=== PATIENT | female | born 1990 | race Caucasian/White ===

== ENCOUNTER 2021-01-18 06:11 | Emergency (ER) | payer MEDICAID ==
[~2021-01-18] VITALS: Ht 154.9 cm; Wt 86.3 kg
--- NOTE | 2021-01-18 07:18 | NUR ---
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
[2021-01-18] MEDS ORDERED: ACETAMINOPHEN 500 MG TABLET PO ONE (07:30)
[2021-01-18] MEDS ORDERED: ONDANSETRON 2MG/ML, 2ML IVPush ONE (07:30)
[2021-01-18] MEDS ORDERED: SODIUM CHLORIDE FLUSH 10ML SYR IVF ONE (07:30)
[2021-01-18] MEDS ORDERED: SODIUM CHLORIDE 0.9% 1,000ML IVBOLUS ONE (07:30)
--- NOTE | 2021-01-18 07:53 | NUR ---
PT STATES SHE RECEIVED 2ND MODERNA COVID VACC YESTERDAY. C/O LT UPPER ARM PAIN; STARTED AT 1800 YESTERDAY; PAIN W/ MOVEMENT OF LUE. TOOK "HEADACHE RELIEF" ([employer]) YESTERDAY W/ MINIMAL RELIEF. PT IS RT HANDED.
[2021-01-18 08:01] LABS: BASOPHILS % (AUTO) 1 % (0-1); EOSINOPHILS % (AUTO) 0 % (1-7); LYMPHOCYTES % (AUTO) 7 % (22-44); MEAN CORPUSCULAR HEMOGLOBIN 29.6 pg (27.0-34.8); MEAN CORPUSCULAR HGB CONC 35.1 g/dL (32.4-35.8); MEAN PLATELET VOLUME 8.1 fL (7.4-10.4); MONOCYTES % (AUTO) 7 % (2-9); NEUTROPHILS % (AUTO) 86 % (42-75); PLATELET COUNT 192 x10^3/uL (130-400); RED BLOOD COUNT 5.25 x10^6/uL (3.82-5.3)
[2021-01-18 08:12] LABS: ALANINE AMINOTRANSFERASE 21 U/L (12-78); ALBUMIN 3.6 g/dL (3.4-5.0); ANION GAP 6 mmol/L (5-15); CALCIUM 8.4 mg/dL (8.5-10.1); CHLORIDE 109 mmol/L (98-107); CREATININE 0.73 mg/dL (0.55-1.02)
[2021-01-18 08:17] LABS: ALKALINE PHOSPHATASE 100 U/L (45-117); BILIRUBIN,TOTAL 0.4 mg/dL (0.2-1.0); TOTAL PROTEIN 7.2 g/dL (6.4-8.2)
[2021-01-18] MEDS ORDERED: ACETAMINOPHEN 500 MG TABLET ONE (08:31)
[2021-01-18] MEDS ORDERED: ONDANSETRON 2MG/ML, 2ML ONE (08:31)
[2021-01-18 09:27] VITALS: BP 99/68
--- NOTE | 2021-01-18 09:29 | NUR ---
TASK RN: Patient/Caregiver given discharge instructions and they have confirmed that they understand the instructions. Patient ambulatory with steady gait. NAD, all questions answered appropriately, denies additional needs at this time. No personal belongings left in room after discharge.
== END 2021-01-18 09:29 | disposition home or self-care (01) ==
LOC: ED 08:51
DX: R50.9 Fever, unspecified (principal); M79.10 Myalgia, unspecified site; R11.2 Nausea with vomiting, unspecified
CPT/HCPCS: 36415; 80053; 84703; 85025; 96372; 99283; J2405

== ENCOUNTER 2021-01-21 20:12 | Emergency (ER) | payer MEDICAID ==
[~2021-01-21] VITALS: Ht 154.9 cm; Wt 85.0 kg
[2021-01-21] MEDS ORDERED: PROMETHAZINE 25 MG/ML, 1ML ONE (22:22)
[2021-01-21 22:29] VITALS: BP 135/71
[2021-01-21] MEDS ORDERED: PROMETHAZINE 25 MG/ML, 1ML IM ONE (22:30)
== END 2021-01-21 22:31 | disposition home or self-care (01) ==
LOC: ED 21:38
DX: J02.9 Acute pharyngitis, unspecified (principal); T50.B95A Adverse effect of other viral vaccines, initial encounter; Z76.0 Encounter for issue of repeat prescription; R11.2 Nausea with vomiting, unspecified; Y92.89 Other specified places as the place of occurrence of the external cause
CPT/HCPCS: 96372; 99283; J2550

== ENCOUNTER 2021-02-09 20:59 | Emergency (ER) | payer MEDICAID ==
[~2021-02-09] VITALS: Ht 154.9 cm; Wt 85.8 kg
[2021-02-09] MEDS ORDERED: SODIUM CHLORIDE FLUSH 10ML SYR IVF ONE (22:30)
[2021-02-09] MEDS ORDERED: SODIUM CHLORIDE 0.9% 1,000ML IVBOLUS ONE (22:30)
[2021-02-09 23:09] LABS: BASOPHILS % (AUTO) 1 % (0-1); EOSINOPHILS % (AUTO) 0 % (1-7); LYMPHOCYTES % (AUTO) 20 % (22-44); MEAN CORPUSCULAR HEMOGLOBIN 29.1 pg (27.0-34.8); MEAN CORPUSCULAR HGB CONC 34.2 g/dL (32.4-35.8); MEAN PLATELET VOLUME 7.8 fL (7.4-10.4); MONOCYTES % (AUTO) 5 % (2-9); NEUTROPHILS % (AUTO) 74 % (42-75); PLATELET COUNT 188 x10^3/uL (130-400); RED CELL DISTRIBUTION WIDTH 13.4 % (9.6-15.2)
--- NOTE | 2021-02-09 23:20 | NUR ---
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
[2021-02-09 23:23] LABS: ALANINE AMINOTRANSFERASE 25 U/L (12-78); ALBUMIN 3.8 g/dL (3.4-5.0); ANION GAP 3 mmol/L (5-15); CALCIUM 8.6 mg/dL (8.5-10.1); CHLORIDE 108 mmol/L (98-107); CREATININE 0.77 mg/dL (0.55-1.02)
--- NOTE | 2021-02-09 23:26 | NUR ---
TASK RN HELPING TO GET PIV INSERTED
[2021-02-09 23:27] LABS: ALKALINE PHOSPHATASE 110 U/L (45-117); BILIRUBIN,TOTAL 0.4 mg/dL (0.2-1.0); TOTAL PROTEIN 7.7 g/dL (6.4-8.2)
--- NOTE | 2021-02-09 23:38 | NUR ---
ASSUMED CARE OF PT. SHE IS HERE C/O MENSTRUAL CRAMPS THAT IS GETTING WORSE. STATES SHE IS ON HER MENSTRUAL PERIOD FOR ALMOST A MONTH NOW. + N/V X4 DAYS R/T CRAMPS MED STUDENT BEDSIDE
[2021-02-10] MEDS ORDERED: ONDANSETRON 2MG/ML, 2ML IVPush ONE
[2021-02-10] MEDS ORDERED: SODIUM CHLORIDE 0.9% 1,000ML IVBOLUS ONE
[2021-02-10] MEDS ORDERED: ONDANSETRON 2MG/ML, 2ML ONE (00:01)
--- NOTE | 2021-02-10 00:06 | NUR ---
PT SITTING ON [facility] ON PHONE, [address]. PT MEDICATED PER OCT. CALL LIGHT W/IN REACH.
--- NOTE | 2021-02-10 00:37 | NUR ---
WENT TO PERFORM STRAIGHT CATH TO COLLECT UA, PT REPORTED VAGINAL US WAS PAINFUL FOR HER AND WOULD PREFER TO NOT HAVE STRAIGHT CATH. STATED CLEAN CATCH WOULD BE ACCEPTABLE. PT DENIES NEED TO VOID AT THIS TIME. [address]. CALL LIGHT W/IN REACH
[2021-02-10] MEDS ORDERED: METOCLOPRAMIDE 10MG TABLET ONE (01:14)
--- NOTE | 2021-02-10 01:16 | NUR ---
PT MEDICATED PER OCT. PT PROVIDED SUPPLIES FOR URINE SAMPLE AND GIVEN INSTRUCTIONS ON CLEAN CATCH. SHE WAS UP TO THE BATHROOM AND BACK W/O INCIDENT, STEADY GAIT. PT ABLE TO PROVIDE URINE SAMPLE. VSS, CALL LIGHT W/IN REACH.
[2021-02-10] MEDS ORDERED: METOCLOPRAMIDE 10MG TABLET PO ONE (01:30)
[2021-02-10 01:39] LABS: MICROSCOPIC AUTO
[2021-02-10 02:15] VITALS: BP 128/66
--- NOTE | 2021-02-10 02:35 | NUR ---
Patient given discharge instructions and they have confirmed that they understand the instructions. Patient ambulatory with steady gait.
== END 2021-02-10 02:36 | disposition home or self-care (01) ==
LOC: ED 21:29
DX: O26.891 Other specified pregnancy related conditions, first trimester (principal); O20.9 Hemorrhage in early pregnancy, unspecified; R10.30 Lower abdominal pain, unspecified; Z32.01 Encounter for pregnancy test, result positive; O21.8 Other vomiting complicating pregnancy; Z3A.01 Less than 8 weeks gestation of pregnancy
CPT/HCPCS: 36415; 76830; 80053; 81001; 84702; 84703; 85025; 86901; 87086; 96361; 96374; 99285; J2405; J7030; Q0181

== ENCOUNTER 2021-02-11 19:09 | Emergency (ER) | payer MEDICAID ==
[~2021-02-11] VITALS: Ht 154.9 cm; Wt 85.3 kg
--- NOTE | 2021-02-11 22:11 | NUR ---
PT REPORTS [employer]ONS/ HR
--- NOTE | 2021-02-11 22:12 | NUR ---
DR RANGEL AT BEDSIDE FOR EVAL AND POC
[2021-02-11 22:15] LABS: BASOPHILS % (AUTO) 1 % (0-1); EOSINOPHILS % (AUTO) 1 % (1-7); LYMPHOCYTES % (AUTO) 20 % (22-44); MEAN CORPUSCULAR HEMOGLOBIN 29.7 pg (27.0-34.8); MEAN CORPUSCULAR HGB CONC 34.6 g/dL (32.4-35.8); MEAN PLATELET VOLUME 7.7 fL (7.4-10.4); MONOCYTES % (AUTO) 6 % (2-9); NEUTROPHILS % (AUTO) 73 % (42-75); PLATELET COUNT 178 x10^3/uL (130-400); RED BLOOD COUNT 5.08 x10^6/uL (3.82-5.3); RED CELL DISTRIBUTION WIDTH 13.6 % (9.6-15.2)
[2021-02-11] MEDS ORDERED: ONDANSETRON 4 MG TABLET PO ONE (22:30)
[2021-02-11] MEDS ORDERED: ONDANSETRON ODT 4 MG PO ONE (22:30)
[2021-02-11] MEDS ORDERED: ONDANSETRON ODT 4 MG ONE (22:50)
[2021-02-11 22:58] VITALS: BP 115/67
--- NOTE | 2021-02-11 22:58 | NUR ---
PT MEDICATED PER OCT 08 RIGHTS VERIFIED
[2021-02-11 23:17] LABS: ALBUMIN 3.8 g/dL (3.4-5.0); CALCIUM 8.7 mg/dL (8.5-10.1); CREATININE 0.63 mg/dL (0.55-1.02)
[2021-02-11 23:24] LABS: ANION GAP 6 mmol/L (5-15); CHLORIDE 106 mmol/L (98-107)
--- NOTE | 2021-02-12 00:04 | NUR ---
Patient/Caregiver given discharge instructions and they have confirmed that they understand the instructions. Patient ambulatory with steady gait. NAD, all questions answered appropriately, denies additional needs at this time. No personal belongings left in room after discharge.
== END 2021-02-12 00:05 | disposition home or self-care (01) ==
LOC: ED 22:43
DX: O03.9 Complete or unspecified spontaneous abortion without complication (principal); R10.30 Lower abdominal pain, unspecified; R11.2 Nausea with vomiting, unspecified
CPT/HCPCS: 36415; 76801; 80048; 82040; 84702; 85025; 99284; Q0162

== ENCOUNTER 2021-02-16 13:39 | Emergency (ER) | payer MEDICAID ==
[~2021-02-16] VITALS: Ht 154.9 cm; Wt 87.3 kg
--- NOTE | 2021-02-16 14:16 | NUR ---
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
--- NOTE | 2021-02-16 14:52 | NUR ---
REPORT TO LISY DURHAM.
[2021-02-16] MEDS ORDERED: KETOROLAC 30 MG/1 ML IM ONE (15:00)
[2021-02-16] MEDS ORDERED: KETOROLAC 30 MG/1 ML ONE (15:22)
[2021-02-16 15:27] VITALS: BP 134/87
--- NOTE | 2021-02-16 15:28 | NUR ---
Patient given discharge instructions and they have confirmed that they understand the instructions. Patient ambulatory with steady gait. NAD, all questions answered appropriately, denies additional needs at this time. No personal belongings left in room after discharge.
== END 2021-02-16 15:37 | disposition home or self-care (01) ==
LOC: ED 14:45
DX: O03.9 Complete or unspecified spontaneous abortion without complication (principal)
CPT/HCPCS: 96372; 99283; J1885

== ENCOUNTER 2021-03-04 20:07 | Emergency (ER) | payer MEDICAID ==
[~2021-03-04] VITALS: Ht 154.9 cm; Wt 80.0 kg
--- NOTE | 2021-03-04 20:21 | NUR ---
pt bib ems from work. 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 pt seen by jobs emt's and was told to go back to work but pain was ot getting better. pt recieved 100 mcg fentynal and 4 mg zofran enroute. Pt denies pain or nausea at this time. pt on all monitors, labs drawn, cxr complete, and ekg done.
[2021-03-04 20:24] LABS: BASOPHILS % (AUTO) 1 % (0-1); EOSINOPHILS % (AUTO) 0 % (1-7); LYMPHOCYTES % (AUTO) 22 % (22-44); MEAN CORPUSCULAR HEMOGLOBIN 29.7 pg (27.0-34.8); MEAN CORPUSCULAR HGB CONC 34.8 g/dL (32.4-35.8); MEAN PLATELET VOLUME 7.8 fL (7.4-10.4); MONOCYTES % (AUTO) 6 % (2-9); NEUTROPHILS % (AUTO) 71 % (42-75); PLATELET COUNT 235 x10^3/uL (130-400); RED BLOOD COUNT 4.99 x10^6/uL (3.82-5.3); RED CELL DISTRIBUTION WIDTH 13.6 % (9.6-15.2)
[2021-03-04 20:34] LABS: ALBUMIN 3.6 g/dL (3.4-5.0); ANION GAP 6 mmol/L (5-15); CALCIUM 8.6 mg/dL (8.5-10.1); CHLORIDE 110 mmol/L (98-107); CREATININE 0.66 mg/dL (0.55-1.02)
[2021-03-04 21:21] VITALS: BP 102/62
== END 2021-03-04 22:16 | disposition home or self-care (01) ==
LOC: ED 21:27
DX: R07.89 Other chest pain (principal); R06.02 Shortness of breath; R94.31 Abnormal electrocardiogram [ECG] [EKG]
CPT/HCPCS: 36415; 71045; 80048; 82040; 84703; 85025; 93005; 99285